=== PATIENT | male | born 1960 | race Caucasian/White ===

== ENCOUNTER 2020-06-16 19:13 | Outpatient (REF) | payer MEDICARE, SELFPAY ==
[2020-06-16 20:43] LABS: Anion Gap 7.7 mmol/L (3-11); BUN 14 mg/dL (7-18); CO2 32.3 mmol/L (21.0-32.0); CREATININE 1.04 mg/dL (0.70-1.30); Calcium 9.7 mg/dL (8.5-10.1); Calculated LDL 127 mg/dL (<100); Chloride 102 mmol/L (98-107); Cholesterol 206 mg/dL (<200); Glucose 93 mg/dL (74-106); HDL Cholesterol 52 mg/dL (40-60); Sodium 142 mmol/L (136-145); Triglyceride 138 mg/dL (<150)
[2020-06-17 18:40] LABS: PSA, Screening 0.3 ng/mL (0.0-3.5)
== END 2020-06-16 19:33 ==
LOC: NCHCN 19:13
PROVIDERS: PCP Nurse Practitioner Family; Visit Provider Physician Assistant
DX: I10 Essential (primary) hypertension (principal); Z12.5 Encounter for screening for malignant neoplasm of prostate
CPT/HCPCS: 80048; 80061; 84153

== ENCOUNTER 2021-07-29 13:39 | Outpatient (REF) | payer MEDICARE, SELFPAY ==
[2021-07-29 14:29] LABS: ALT 58 U/L (16-63); AST 29 U/L (15-37); Alkaline Phosphatase 68 U/L (46-116); Anion Gap 9.7 mmol/L (3-11); BUN 16 mg/dL (7-18); Bilirubin, Total 0.7 mg/dL (0.2-1.0); CO2 32.3 mmol/L (21.0-32.0); CREATININE 1.1 mg/dL (0.70-1.30); Calcium 9.8 mg/dL (8.5-10.1); Calculated LDL 160 mg/dL (<100); Chloride 101 mmol/L (98-107); Cholesterol 254 mg/dL (<200); Glucose 107 mg/dL (74-106); HDL Cholesterol 59 mg/dL (40-60); Potassium 3.7 mmol/L (3.5-5.1); Sodium 143 mmol/L (136-145); Total Protein 8.1 g/dL (6.4-8.2); Triglyceride 179 mg/dL (<150)
[2021-07-29 14:44] LABS: Hemoglobin A1C 5.8 % (<5.7)
== END 2021-07-29 13:40 | disposition home or self-care (01) ==
LOC: NCHCN 13:39
PROVIDERS: PCP Nurse Practitioner Family; Visit Provider Physician Assistant
DX: I10 Essential (primary) hypertension (principal); R73.03 Prediabetes
CPT/HCPCS: 80053; 80061; 83036

== ENCOUNTER 2022-07-29 02:01 | Outpatient (CLI) | payer MEDICARE, OTHER, SELFPAY ==
--- NOTE | 2022-07-29 13:50 | DI.US_ITS ---
APPROVED REPORT EXAM: Comprehensive 2D, Doppler, and color-flow Echocardiogram Patient Location: Out-Patient Operating Room Coordinator: Fiona Monte RDCS (AE) Indications: Atrial fibrillation Other Information Study Quality: Fair. Technically limited study due to body habitus. Conclusion Technically difficult study Moderate concentric left ventricular hypertrophy. Estimated ejection fraction is 55%. No wall motio n abnormalities are appreciated Right ventricle appears grossly normal in size and systolic function The left atrium is mildly dilated. The right atrium is normal in size Aortic valve is not well visualized. There is no aortic stenosis or regurgitation Normal mitral valve with trace regurgitation Normal tricuspid valve with trace regurgitation. Estimated right ventricular systolic pressure is 24 mmHg Mildly dilated ascending aorta measuring 3.73 cm Wall motion Left Ventricle The left ventricle is normal size. The left ventricular systolic function is normal. The left ventric ular ejection fraction is within the normal range. Moderate concentric left ventricular hypertrophy. There is normal LV segmental wall motion. There is no ventricular septal defect visualized. LVEF is 5 5%. Right Ventricle Right ventricle is grossly normal in size. Right ventricular systolic function is grossly normal. The RVSP is 24.1 mmHg. Atria Left atrium is mildly dilated. The right atrium size is normal. The interatrial septum is intact with no evidence for an atrial septal defect. Aortic Valve The aortic valve is not well visualized. Number of aortic valve leaflets could not be assessed. There is no aortic valvular stenosis. No aortic regurgitation is present. Mitral Valve The mitral valve is normal in structure. No evidence of mitral valve stenosis. Trace mitral regurgita tion. Tricuspid Valve The tricuspid valve is normal in structure. There is no tricuspid valve stenosis. Trace tricuspid reg urgitation. Pulmonic Valve The pulmonary valve is normal in structure. There is no pulmonic valvular stenosis. There is no pulmo christelle valvular regurgitation. Great Vessels The aortic root is normal in size. The ascending aorta is mildly dilated.3.73 cm Aortic arch is not w ell visualized. IVC is normal in size and collapses >50% with inspiration. Pericardium There is no pericardial effusion. 2D Dimensions IVSD d PLAX 1.40 cm M: 0.6-1.2 LV Vol A2C d MOD 110.8 mL LVPW d PLAX 1.43 cm M: 0.6 - 1.2 LV Vol A4C d MOD 109.3 mL LVID d PLAX 4.63 cm M: 4.2 - 5.8 LA vol/ BSA A2C s A-L 43.5 mL/m2 LVDs 3.45 cm M: 2.5 - 4.0 LA Area A2C s MOD 31.72 cm2 Ao Root d 2.75 cm M: 3.1 - 3.7 LV EF A4C MOD 55.7 % RA Area A4C 22.84 cm2 LV EF A2C MOD 55.4 % RA Vol/ BSA A4C s A-L 24.4 mL/m2 LV EF Biplane MOD 51.8 % Ao Asc Diam d 3.73 cm M: 2.6 - 3.4 SV 57.46 mL LV EF Teichholz 49.1 % SV Index 21.26 mL/m2 LVEF (Lopes's) 51.78 % M: 52 - 72 LV Volume 76.02 mL M: 62 - 150 LV Volume Index 28.15 mL/m2 M: 34 - 74 LV Vol Biplane MOD 111.0 mL FS 24.70 % M-Mode TAPSE 1.72 cm (M/F) >1.7 LV Diastology MV E' medial 0.090 (>0.07 m/s) MV E Vmax 1.08 (0.4-1.3 m/s) LV E/e MED 12.00 (<14) MV E' lateral 0.106 (>0.1 m/s) LV E/e LAT 10.20 (<14) MV E/E' medial 12.01 MV E/E' lateral 10.23 Aortic Valve LVOT Area 2.99 cm2 AoV Area Vmax 2.58 cm2 LVOT Vmax 1.16 m/s AoV Area/ BSA (Vmax) 0.95 cm2/m2 LVOT Mean Nadir. 0.78 m/s LILO Mean Nadir. 2.34 cm2 LVOT Peak Grad 5.4 mmHg LILO Mean Nadir. Index 0.87 cm2/m2 LVOT Mean Grad 2.9 mmHg LVOT VTI 0.215 m LVOT Diam s 1.90 cm AoV Vmax 1.35 m/s Velocity Ratio 0.85 AoV Mean Nadir. 1.00 m/s AoV Peak Grad 7.3 mmHg LVOT SV 64.34 mL AoV Mean Grad 4.3 mmHg AoV VTI 0.238 m AoV Area VTI 2.71 cm2 AoV Area/ BSA (VTI) 1.00 cm/m2 Mitral Valve MV DT 232 (160-240 msec) MV PHT 67 msec MV Area PHT 3.27 cm2 MV VTI 0.215 m MV Area VTI 2.99 (4.0-6.0 cm2) Pulmonary Valve PV Vmax 1.03 (0.5-1.5 m/s) RVOT Peak Gr. 2.27 mmHg PV Peak Grad 4.3 mmHg RVOT Mean Gr. 1.75 mmHg PV Mean Grad 2.1 mmHg RVOT VTI 0.150 m PV VTI 0.180 m RVOT Vmax 0.75 m/s Tricuspid Valve TR Peak Grad 21.1 mmHg TR Vmax 2.30 m/s RA Pressure 3.00 mmHg RVSP (TR) 24.1 mmHg
== END 2022-07-29 02:21 ==
PROVIDERS: Visit Provider Physician Assistant
DX: I48.91 Unspecified atrial fibrillation (principal)
CPT/HCPCS: 93306

== ENCOUNTER 2024-08-23 15:14 | Outpatient (CLI) | payer MEDICARE, OTHER, SELFPAY ==
--- NOTE | 2024-08-23 10:00 | DI.RAD_ITS ---
Exam(s) XR HIP LT COMPLETE AP PELVIS EXAM: XR HIP LT COMPLETE AP PELVIS CLINICAL HISTORY: OA L HIP. TECHNIQUE: 2D digital imaging was performed of the left hip. Two views were obtained. AP pelvis an d lateral left hip views were obtained. COMPARISON: No exams were available for comparison FINDINGS: BONES: No acute fracture is present. No bony destructive lesion is seen. The patient has a right tota l hip replacement. Portions of the arthroplasty are obscured by external artifact. JOINTS: There are marked degenerative changes seen in the left hip with loss of the superior joint sp yang. There osteophytes seen at both the acetabular roof and the femoral head. Mild subchondral scle rosis is also seen at the joint. SOFT TISSUE: Vascular calcifications are present. IMPRESSION: Marked degenerative changes of the left hip. DATA REPOSITORY: RADIATION DOSE DELIVERED:
== END 2024-08-23 15:15 | disposition home or self-care (01) ==
LOC: DIORS 15:15
PROVIDERS: PCP Physician Assistant; Referring Provider Physician Assistant; Visit Provider Physician Assistant
DX: M16.12 Unilateral primary osteoarthritis, left hip (principal)
CPT/HCPCS: 99203; 73502

== ENCOUNTER 2025-06-26 08:02 | Emergency (ER) | payer MEDICARE, OTHER, SELFPAY ==
[2025-06-26] VITALS (11 sets, daily range): BP systolic 159–179; BP diastolic 84–124; PULSE 60–118; RESP 18–22; TEMP 36.6; O2SAT 97–100
--- NOTE | 2025-06-26 08:14 | W.ED.GENAD ---
Discharge Plan Disposition Patient Disposition: Home Condition: Stable Discharge Details Clinical Impression: Diverticulitis Primary Care Provider: Derek Macedo ED Provider: Bismark Pagan Home Meds and New Rx's Prescriptions: New amoxicillin-pot clavulanate 875-125 mg tablet 1 tab PO BID 10 Days Qty: 20 0RF ketorolac 10 mg tablet 10 mg PO QID PRN5 Days Qty: 20 0RF Rx Instructions: maximum total duration of 5 days from all oral, intranasal, or parenteral formulations cyclobenzaprine 10 mg tablet 10 mg PO TID PRNQty: 30 0RF Continued furosemide [Lasix] 40 MG tablet 80 mg PO DAILY metoprolol succinate [Toprol XL] 100 MG tablet extended release 24 hr 200 mg PO DAILY polyethylene glycol 3350 [Miralax] 17 GM powder in packet 255 gm PO for colonoscopy Qty: 1 bisacodyl [Dulcolax (bisacodyl)] 5 MG tablet,delayed release (DR/EC) 5 mg PO as directed Qty: 4 Rx Instructions: take all 4 tabs at once 4 hours before starting nulytely preop lisinopril 10 mg tablet 20 mg PO DAILY Patient Comments: Pt unsure of dosage 01/18/17 -AT allopurinol 100 mg tablet 100 mg PO DAILY hydrocodone-acetaminophen 10-325 mg tablet 1 tab PO Q8H PRN tamsulosin 0.4 mg capsule 0.8 mg PO DAILY Zepbound 12.5 mg/0.5 mL pen injector 12.5 mg subcut QWEEK potassium chloride 10 MEQ capsule, extended release 1 tab PO DAILY sildenafil [Viagra] 100 MG tablet 100 mg PO PRN PRN Discharge Instructions Instructions: Ketorolac (Systemic), Diverticulitis, Amoxicillin and Clavulanate, Cyclobenzaprine Additional Instructions: You were seen in the emergency department for your abdominal pain, your CT scan shows some diverticulitis in your colon, this is treated with an antibiotic called Augmentin which was sent to your pharmacy, as well as 5 days of Toradol which is stronger than ibuprofen, please take 1 g of Tylenol 4 times a day as well. We sent you home with a stool collection kit, you can drop this back off at the lab when you would like, if your symptoms get completely better with the antibiotic you may not need to even drop off stool samples. Your back pain is likely musculoskeletal back pain, I have sent you a prescription for muscle relaxer called cyclobenzaprine to take 3 times a day, do not drive on this medication, have also sent you a referral to physical therapy, apply [id number] lidocaine patches to the area of pain of your back for 12 hours each day, apply heat to help relax the muscle. Stand Alone Forms: Physical Therapy Referral Referrals: Derek Macedo [Primary Care Provider, Medicine] Discharge Data Discharge Date/Time-TO BE ENTERED AT DEPARTURE: 06/26/25 14:15 HPI General Date/Time Provider Initiated Documentation: 06/26/25 08:14. HPI Narrative: 65 year-old male presents to ED today by POV/ambulating with a chief complaint of RUQ tenderness almost in the axilla, worse with movement with onset 4 days ago. Quality described as R sided abdominal pain, nausea/vomiting/diarrhea, sweats and chills, no radiation to chest pain, shortness of breath, dysuria, flank pain, hematuria, black stools. Severity is described as moderate. Palliating factors include nothing specific attempted. Provoking factors include certain movements. Events leading up to the incident/Associated Symptoms: Patient was recently on antibiotics for cellulitis and completed his course. Patient not anticoagulated. Related Data Home Medications ?Medication ?Instructions ?Recorded ?Confirmed furosemide 40 mg tablet (Lasix) 80 mg PO DAILY 05/31/16 08/23/24 metoprolol succinate 100 mg 200 mg PO DAILY 05/31/16 08/23/24 tablet,extended release 24 hr (Toprol XL) bisacodyl 5 mg tablet,delayed 5 mg PO as directed #4 tabs 07/05/16 08/23/24 release (Dulcolax (bisacodyl)) polyethylene glycol 3350 17 gram 255 gm PO for colonoscopy #1 g 07/05/16 08/23/24 oral powder packet (Miralax) potassium chloride 10 mEq 1 tab PO DAILY 07/28/16 08/23/24 capsule,extended release sildenafil 100 mg tablet (Viagra) 100 mg PO PRN PRN 09/14/16 08/23/24 lisinopril 10 mg tablet 20 mg PO DAILY 06/30/22 08/23/24 allopurinol 100 mg tablet 100 mg PO DAILY 08/12/24 11/07/24 hydrocodone 10 mg-acetaminophen 1 tab PO Q8H PRN 05/28/24 08/23/24 325 mg tablet tamsulosin 0.4 mg capsule 0.8 mg PO DAILY 05/28/24 08/23/24 tirzepatide (weight loss) 12.5 12.5 mg subcut QWEEK 05/28/24 08/23/24 mg/0.5 mL subcutaneous pen injector (Zepbound) amoxicillin 875 mg-potassium 1 tab PO BID 10 days #20 tabs 06/26/25 clavulanate 125 mg tablet cyclobenzaprine 10 mg tablet 10 mg PO TID PRN #30 tabs 06/26/25 ketorolac 10 mg tablet 10 mg PO QID PRN 5 days #20 tabs 06/26/25 Previous Rx's ?Medication ?Instructions ?Recorded amoxicillin 875 mg-potassium 1 tab PO BID 10 days #20 tabs 06/26/25 clavulanate 125 mg tablet cyclobenzaprine 10 mg tablet 10 mg PO TID PRN #30 tabs 06/26/25 ketorolac 10 mg tablet 10 mg PO QID PRN 5 days #20 tabs 06/26/25 Allergies Allergy/AdvReac Type Severity Reaction Status Date / Time No Known Allergies Allergy Unverified 06/26/25 08:16 Review of Systems All systems reviewed & are unremarkable except as noted in HPI and below Exam Narrative Exam Narrative: GENERAL APPEARANCE: Well-nourished, non-toxic, awake and alert, atraumatic, no acute distress. SKIN: Warm, pink, dry, intact, without rashes/lesions/ulcerations. HEAD: Normocephalic, atraumatic, normal hair distribution for gender/age. EYES: Normal conjunctiva, no exudates on lids/lashes. ENT: Nares patent, no circumoral cyanosis, no facial swelling NECK: Supple, trachea midline, painless cervical ROM. LUNGS/CHEST: Lungs CTA bilaterally-no rhonchi/rales/wheezes diffusely, non-labored respirations, normal A/P diameter, symmetrical expansion, no chest wall deformity HEART (CV/PV): Regular rate and rhythm without murmur, no peripheral edema, no JVD. ABDOMEN: Soft, non-distended, no guarding, mild diffuse abdominal tenderness most focal in the left upper and epigastric area. MSK: Normal ROM, no swelling/deformity to bilateral UEs or LEs, moving all extremities without weakness, no cyanosis, spine midline without tenderness-has palpable muscle tension in the right paraspinal back, normal curvature. NEURO: Mental Status AAOx4 - alert to person, place, time, events No facial droop, no forehead involvement. Motor: No focal weakness - strength 5/5 in bilateral UEs and LEs, proximal and distal, symmetric. Sensory: sensation intact to light touch globally. Gait normal: patient ambulated without ataxia into ED room. PSYCH: euthymic, cooperative, pleasant, appropriate speech Medical Decision Making This dictation utilizes [id number] dictation software and may contain unedited grammatical errors. 65 year-old male presents to ED today by POV/ambulating with a chief complaint of RUQ tenderness almost in the axilla, worse with movement with onset 4 days ago. Quality described as R sided abdominal pain, nausea/vomiting/diarrhea, sweats and chills, no radiation to chest pain, shortness of breath, dysuria, flank pain, hematuria, black stools. Severity is described as moderate. Palliating factors include nothing specific attempted. Provoking factors include certain movements. Events leading up to the incident/Associated Symptoms: Patient was recently on antibiotics for cellulitis and completed his course. Patients' medical history: Hypertension, prediabetes, A-fib, gout. Family and social history: Noncontributory. Pertinent exam findings / vital signs include diffuse abdominal tenderness with no focal area worse than the other, no CVA tenderness to percussion, benign cardiopulmonary exam, neuro intact, nontoxic and afebrile. Differential / pathologies of concern include gastroenteritis, gastritis, biliary colic, diverticulitis, back strain/spasm, unlikely SBO. Diagnostic studies of: - CBC, CMP, lactate, magnesium, lipase, UA, CT ABD/pelvis with contrast. Sent home with stool sample kit. - CBC shows no leukocytosis, mild baseline anemia - Lactate 2.0 - CMP shows mild hypokalemia 3.4 would replete with normal p.o. intake - Magnesium within normal limits - Lipase within normal limits - LFTs within normal limits - UA shows no signs of infection - CT shows uncomplicated sigmoid diverticulitis Interventions of: - 15 mg IVP Toradol, 2 mg p.o. diazepam, 4 mg IVP Zofran, 1 g IV Tylenol, 1 L IVF NS, 6 mg IVP morphine. ED Course/Assessment/Plan: 65-year-old male presents with what is presenting as 2 separate pains 1 in the back which is movement-based and the other is diffuse abdominal pain. I do suspect he is having back spasms as well as some sort of abdominal pathology, CT did show a sigmoid diverticulitis, his labs are reassuring for no sign of sepsis, and mild hypokalemia and no other elevation of LFTs or lipase, and plan to treat him with Augmentin and cyclobenzaprine for back spasm, I stressed strict return emergency room for any severe acute worsening despite treatment. Findings not consistent with SBO, sepsis, perforated viscus, biliary tree pathology. Disposition of Diverticulitis. Patient verbalized understanding of the plan and return to ED criteria and engaged in shared decision making. Medical Records Medical records reviewed: Yes I reviewed the patient's medical records. Imaging Data Radiologic Study: Attestation: I personally reviewed and interpreted this imaging study as follows: Imaging: CT Scan Radiologist's impression: EXAM: CT ABDOMEN PELVIS W CLINICAL HISTORY: abd pain, nvd, RUQ tenderness. TECHNIQUE: Imaging Protocol: Axial computed tomography images with coronal and sagittal reformatted images were created and reviewed CONTRAST MATERIAL: Intravenous: Omnipaque 350 Contrast volume:100 ml Oral: no COMPARISON: No exams were available for comparison FINDINGS: ABDOMEN and PELVIS: Lung Bases: No acute findings. Liver: Normal density. No suspicious mass. Gallbladder and biliary tract: No radiodense calculus. No wall thickening or pericholecystic fluid. No biliary dilation. Pancreas: Normal somewhat atrophic. No abnormal calcifications or inflammatory process. No evidence of mass. Spleen: Normal. Kidneys: Normal size, contour and axis. No radiodense stones. No obstructive uropathy. No suspicious masses seen. Adrenal glands: No masses seen. Vasculature: Abdominal aorta non-dilated. Soft tissues: Unremarkable. Bladder: Diffuse wall thickening. No calculi.No focal mass. Bowel: No obstruction. No wall thickening. The appendix is not seen. There is mild diverticulosis.. There is a question of some wall thickening and some stranding of at the sigmoid colon. Normal quantity of stool. Peritoneal cavity: No ascites. No focal collection. No free air. Bones: Right hip prosthesis. Severe degenerative changes of the left hip. Advanced degenerative changes in the spine, greatest at L5-S1. Reproductive organs: Unremarkable. Lymph nodes: No pathologically enlarged lymph nodes. IMPRESSION:: No mild sigmoid diverticulosis. Focal stranding around the sigmoid could indicate mild diverticulitis. Diffuse bladder wall thickening could indicate cystitis. Clinical correlation is recommended Lab Data Lab results reviewed: Yes I reviewed the patient's lab results. Labs: Laboratory Tests Range/Units 06/26/25 06/26/25 08:30 09:33 WBC (4.4-10.8) 10^3/uL 9.11 RBC (4.36-5.78) 10^6/uL 3.91 L Hgb (13.5-17.5) g/dL 13.2 L Hct (40.0-50.0) % 39.0 L MCV (80-95) fL 100 H MCH (27.0-33.0) pg 33.8 H MCHC (32.0-36.0) % 33.8 RDW (11.8-14.1) % 13.9 Plt Count (130-400) 10^3/uL 233 MPV (8.0-11.0) fL 11.2 H Immature Gran % % 0.8 Neutrophils % % 83.9 Lymphocytes % % 9.4 Monocytes % % 4.9 Eosinophils % % 0.1 Basophils % % 0.9 Nucleated RBC % (0.0-0.3) % 0.0 Absolute Neutrophils (1.2-6.7) 10^3/uL 7.64 H Absolute Lymphocytes (1.2-3.4) 10^3/uL 0.86 L Absolute Monocytes (0.1-0.8) 10^3/uL 0.45 Absolute Eosinophils (0.0-0.7) 10^3/uL 0.01 Absolute Basophils (0.0-0.2) 10^3/uL 0.08 VBG Lactate (<or=2.0) mmol/L 2.0 Sodium (136-145) mmol/L 140 Potassium (3.5-5.1) mmol/L 3.4 L Chloride (98-107) mmol/L 101 Carbon Dioxide (21.0-32.0) mmol/L 31.6 Anion Gap (3-11) mmol/L 7.4 BUN (7-18) mg/dL 15 Creatinine (0.70-1.30) mg/dL 0.9 Est GFR (CKD-EPI 2020) (mL/min/1.73m2) 95.37 Glucose (74-106) mg/dL 105 Calcium (8.5-10.1) mg/dL 9.9 Magnesium (1.8-2.4) mg/dL 2.0 Total Bilirubin (0.2-1.0) mg/dL 1.0 AST (15-37) U/L 18 ALT (16-63) U/L 23 Alkaline Phosphatase (46-116) U/L 65 Total Protein (6.4-8.2) g/dL 7.8 Albumin (3.4-5.0) g/dL 3.5 Lipase (<78) U/L 36 Urine Color (Yellow) Yellow Urine Clarity (Clear) Clear Urine pH (5-8) 6.5 Ur Specific [place] (1.005-1.025) 1.020 Urine Protein (Neg-Trace) mg/dL 100 H Urine Ketones (Negative) mg/dL Trace H Urine Blood (Negative) Negative Urine Nitrite (Negative) Negative Urine Bilirubin (Negative) Negative Urine Urobilinogen (Up to 0.2) mg/dL 0.2 Ur Leukocyte Esterase (Negative) Negative Urine RBC (0-2) HPF 0-2 Urine WBC (0-5) HPF 0-2 Ur Epithelial Cells (Negative) HPF Rare Urine Crystals (Negative) HPF Negative Urine Bacteria (Negative) HPF Negative Urine Casts (Negative) LPF 0-2 Hyaline Urine Mucus (Negative) Trace Ur Culture Indicated? No Urine Glucose (Negative) mg/dL Negative PFSH All Active Problems (Updated 06/26/25 @ 12:58 by DEUCE Streeter) Diverticulitis (Chronic) Osteoarthritis of left hip (Acute) Medical History (Updated 06/26/25 @ 12:58 by DEUCE Streeter) Pes anserinus bursitis of left knee prepatella bursitis requiring debridement and skin coverage in '17. 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 Tibial component now loose . History of total right hip replacement History of total left knee replacement surgery done ' Status post right knee replacement 2011 Dr. Oneal, [place] Appendectomy Social History Smoking/Tobacco Use Status: Current-Occasional Smoking risk assessment performed?: Yes Drug use: Never Housing: house
--- NOTE | 2025-06-26 08:15 | DI.CT_ITS ---
Exam(s) CT ABDOMEN PELVIS W EXAM: CT ABDOMEN PELVIS W CLINICAL HISTORY: abd pain, nvd, RUQ tenderness. TECHNIQUE: Imaging Protocol: Axial computed tomography images with coronal and sagittal reformatted images were created and reviewed CONTRAST MATERIAL: Intravenous: Omnipaque 350 Contrast volume:100 ml Oral: no COMPARISON: No exams were available for comparison FINDINGS: ABDOMEN and PELVIS: Lung Bases: No acute findings. Liver: Normal density. No suspicious mass. Gallbladder and biliary tract: No radiodense calculus. No wall thickening or pericholecystic fluid. No biliary dilation. Pancreas: Normal somewhat atrophic. No abnormal calcifications or inflammatory process. No evidence of mass. Spleen: Normal. Kidneys: Normal size, contour and axis. No radiodense stones. No obstructive uropathy. No suspicious masses seen. Adrenal glands: No masses seen. Vasculature: Abdominal aorta non-dilated. Soft tissues: Unremarkable. Bladder: Diffuse wall thickening. No calculi.No focal mass. Bowel: No obstruction. No wall thickening. The appendix is not seen. There is mild diverticulosis.. There is a question of some wall thickening and some stranding of at the sigmoid colon. Normal quantity of stool. Peritoneal cavity: No ascites. No focal collection. No free air. Bones: Right hip prosthesis. Severe degenerative changes of the left hip. Advanced degenerative changes in the spine, greatest at L5-S1. Reproductive organs: Unremarkable. Lymph nodes: No pathologically enlarged lymph nodes. IMPRESSION:: No mild sigmoid diverticulosis. Focal stranding around the sigmoid could indicate mild diverticulitis. Diffuse bladder wall thickening could indicate cystitis. Clinical correlation is recommended RADIATION DOSE DELIVERED: 934.93mGy.cm Total DLP DATA REPOSITORY: All CT scans at this facility are submitted to the National Radiology Data Registry (NRDR) Dose Index Registry (DIR) with the [employer] ([employer]). RADIATION OPTIMIZATION: All CT scans at this facility use at least one of these dose optimization techniques: automated exposure control; mA and/or kV adjustment per patient size (includes targeted exams where dose is matched to clinical indication); or iterative reconstruction.
[2025-06-26 08:42] LABS: Abs Immature Grans 0.07 10^3/uL (0.0-0.06); HCT 39.0 % (40.0-50.0); HGB 13.2 g/dL (13.5-17.5); Immature Grans % 0.8 %; MCH 33.8 pg (27.0-33.0); MCHC 33.8 % (32.0-36.0); MCV 100 fL (80-95); MPV 11.2 fL (8.0-11.0); Platelet Count 233 10^3/uL (130-400); RBC 3.91 10^6/uL (4.36-5.78); RDW 13.9 % (11.8-14.1); RDW-SD 51.5 fL; WBC 9.11 10^3/uL (4.4-10.8)
[2025-06-26] MEDS: Ketorolac 15 MG/ML VIAL IVP (08:45)
[2025-06-26] MEDS: diazePAM 2 MG TAB PO (08:45)
[2025-06-26] MEDS: ACETAMINOPHEN 1,000 MG/100 ML BAG 400 MG IVPB (08:45)
[2025-06-26] MEDS: Ondansetron 4 MG/2 ML VIAL IVP (08:45)
[2025-06-26] MEDS: Normal Saline 1,000 ML 1000 ML IV (08:45)
[2025-06-26 09:00] LABS: ALT 23 U/L (16-63); AST 18 U/L (15-37); Albumin 3.5 g/dL (3.4-5.0); Alkaline Phosphatase 65 U/L (46-116); Anion Gap 7.4 mmol/L (3-11); BUN 15 mg/dL (7-18); Bilirubin, Total 1.0 mg/dL (0.2-1.0); CO2 31.6 mmol/L (21.0-32.0); Calcium 9.9 mg/dL (8.5-10.1); Chloride 101 mmol/L (98-107); Estimated GFR 95.37 (mL/min/1.73m2); Glucose 105 mg/dL (74-106); Lipase 36 U/L (<78); Magnesium 2.0 mg/dL (1.8-2.4); Potassium 3.4 mmol/L (3.5-5.1); Sodium 140 mmol/L (136-145); Total Protein 7.8 g/dL (6.4-8.2)
[2025-06-26] MEDS: Ondansetron O.D.T. 4 MG TABEF (09:05)
[2025-06-26 09:39] LABS: Glucose Negative (Negative)
[2025-06-26 09:50] LABS: C & S Indicated? No; RBC 0-2 HPF (0-2); WBC 0-2 HPF (0-5)
[2025-06-26] MEDS: MORPHine 10 MG/ML VIAL 6 MG IVP (10:56)
[2025-06-26] MEDS: Omnipaque 350 MG/ML 100 ML BTL IJ (11:44)
[2025-06-26] MEDS: Normal Saline - Diluent 50 ML VIAL IJ (11:44)
[2025-06-26] MEDS: Normal Saline Flush 10 ML SYR IVP (11:44)
--- NOTE | 2025-06-26 12:05 | NUR.NOTE ---
Nursing Note: patient back from CT scan, appears more comfortable than before, is still reporting pain but also falling asleep mid conversation, will wait and reassess. Will make MD aware.
== END 2025-06-26 14:15 | disposition home or self-care (01) ==
PROVIDERS: Emergency Provider Physician Assistant; PCP Physician Assistant
DX: K57.92 Diverticulitis of intestine, part unspecified, without perforation or abscess without bleeding (principal); R10.11 Right upper quadrant pain; R11.2 Nausea with vomiting, unspecified; M54.9 Dorsalgia, unspecified
CPT/HCPCS: 36415; 80053; 83690; 96361; 96374; 96375; 99285; 74177; 81003; 81015; 83605; 83735; 85025; 99284; J0131; J1885; J2270; J2405; J3490

== ENCOUNTER → 2025-08-26 08:54 | Outpatient (BNVA) | payer MEDICARE, OTHER, SELFPAY | PROVIDERS: PCP Physician Assistant; Referring Provider Physician Assistant; Visit Provider Student in an Organized Health Care Education/Training Program | DX: M16.12 Unilateral primary osteoarthritis, left hip (principal); I89.0 Lymphedema, not elsewhere classified | CPT/HCPCS: 99214 ==

== ENCOUNTER → 2025-10-03 09:51 | Outpatient (BNVA) | payer MEDICARE, OTHER, SELFPAY | PROVIDERS: PCP Physician Assistant; Referring Provider Physician Assistant; Visit Provider Physician Assistant | DX: Z01.818 Encounter for other preprocedural examination (principal); M16.12 Unilateral primary osteoarthritis, left hip | CPT/HCPCS: 99024 ==